=== PATIENT | female | born 1975 | race Caucasian/White ===

== ENCOUNTER 2017-10-29 15:44 | Emergency (ER) | payer BC ==
[~2017-10-29] VITALS: Ht 167.6 cm; Wt 60.1 kg
[2017-10-29 15:49] VITALS: TEMP 36.9; Ht 167.6 cm; Wt 60.1 kg
[2017-10-29] MEDS ORDERED: BENZONATATE 100MG CAP PO STA (17:15)
[2017-10-29] MEDS ORDERED: ALBUTEROL HFA 8 GM INHALER INH STA (17:15)
--- NOTE | 2017-10-29 18:05 | DIAGNOSTIC IMAGING REPORT ---
CHEST 2 VIEWS ROUTINE CLINICAL HISTORY: 42 years-old Female presenting with cough for 2 weeks. TECHNIQUE: PA and lateral views of the chest were obtained. COMPARISON: None. FINDINGS: Cardiomediastinal silhouette normal. Lungs and pleural spaces clear. Osseous structures normal. Upper abdomen normal. IMPRESSION: 1. No acute cardiopulmonary disease. Electronically signed by: Russel Dave M.D. 10/29/2017 6:04 PM Dictated Date/Time: 10/29/2017 6:03 PM
[2017-10-29 18:13] LABS: INFLUENZA B ANTIGEN Neg for Influ B (NEG)
--- NOTE | 2017-10-29 18:20 | EMERGENCY ROOM VISIT NOTE ---
ED Visit Note First contact with patient: 17:01 CHIEF COMPLAINT: Cough, rhinorrhea, subjective fever HISTORY OF PRESENT ILLNESS: This 42-year-old female patient presents to the emergency department ambulatory, complaining of URI symptoms x 2 weeks. The patient states they have been experiencing congestion, runny nose, sore throat, productive cough, chills, headache, bilateral otalgia, and subjective fever. She states the sore throat has improved, but the coughing is lingering. They deny any other symptoms including swollen lymph nodes, nausea, or vomiting. The patient was seen initially by urgent care 1 week ago, and states she was not given any antibiotics. She was then seen by her primary care provider on Wednesday or Wednesday of this week, where she was given a Z-Wesley. She states she did have a negative strep test performed at that time. She finished the Z-Wesley today, and states she continues to experience the discomfort. She is not getting any better. The patient describes the drainage from the nose as yellow. There bilateral sinus pressure with pain. The patient has taken various OTC medications including Mucinex, nasal sprays, and cough medicine without relief. The patient does not work around children, nor does she have small children who attend daycare or school. Denies a rash. She denies any chest pain, dyspnea, diarrhea, constipation, abdominal pain. She did not get a flu shot this year. REVIEW OF SYSTEMS: A 10 system review of systems was performed with positives and pertinent negatives listed in the history of present illness. All other systems were reviewed and are negative. ALLERGIES: None MEDICATIONS: Spironolactone, vitamins PMH: Acne SOCIAL HISTORY: The patient lives locally with family. She denies drug, alcohol , tobacco use. PHYSICAL EXAM: VITALS: Vitals are noted on the nurse's note and reviewed by myself. Vital signs stable. GENERAL: This is a 42-year-old white female, in no acute distress, nondiaphoretic, well-developed well-nourished. SKIN: The skin was without rashes, erythema, edema, or bruising. There is no tenting of the skin. Capillary reflex less than 2 seconds. HEAD: Normocephalic atraumatic. EARS: External auditory canals clear, bilateral tympanic membranes pearly eddy without erythema or effusion bilaterally. EYES: Pupils equal round and reactive to light and accommodation. Conjunctivae without injection, sclerae without icterus. Extraocular movements intact. NOSE: Patent, turbinates without inflammation or erythema. Clear, runny rhinorrhea noted. No sinus tenderness. MOUTH: Mucous membranes moist. Tonsils are not enlarged. Pharynx without erythema or exudate. Uvula midline. Airway patent. Tongue does not deviate. NECK: Supple without nuchal rigidity. No lymphadenopathy. No thyromegaly. Cervical spine is nontender. No JVD. HEART: Regular rate and rhythm without murmurs gallops or rubs. LUNGS: Clear to auscultation bilaterally without wheezes, rales or rhonchi. No dullness to percussion. No retractions or accessory muscle use. MUSCULOSKELETAL: No muscle atrophy, erythema, or edema noted. Full range of motion without joint tenderness in all extremities. No tenderness to palpation. Normal gait. Strength 5/5 throughout. NEURO: Patient was alert and oriented to person place and time. Normal sensation to light and sharp touch. No focal neurological deficits. RADIOLOGY: CHEST 2 VIEWS ROUTINE CLINICAL HISTORY: 42 years-old Female presenting with cough for 2 weeks. TECHNIQUE: PA and lateral views of the chest were obtained. COMPARISON: None. FINDINGS: Cardiomediastinal silhouette normal. Lungs and pleural spaces clear. Osseous structures normal. Upper abdomen normal. IMPRESSION: 1. No acute cardiopulmonary disease. Electronically signed by: Russel Dave M.D. 10/29/2017 6:04 PM Dictated Date/Time: 10/29/2017 6:03 PM EMERGENCY DEPARTMENT COURSE: The patient was seen and evaluated as above. Influenza test performed and was negative. Chest x-ray performed and reviewed by myself and radiologist as above. The patient was given an albuterol inhaler and benzonatate. She did note significant improvement in her coughing and symptoms. She continues to experience a headache. I did offer Tylenol or Motrin, the patient declines at this time. Based on her symptoms and no objective fever, I suspect a viral etiology of illness. The patient was recently on antibiotics without any improvement. She does appear to be improving, however slowly. I discussed proper management of symptoms with OTC medications with the patient at bedside. I had a long discussion with her regarding inappropriate use of antibiotics. The patient was agreeable to the plan, and she was encouraged to follow-up closely outpatient with her PCP if no improvement in symptoms by next week. Discharge instructions reviewed, and the patient was discharged home in good condition. I attest that I have personally reviewed the patient's current medication list. Patient was found to have normal blood pressure on screening and does not require follow-up. DIFFERENTIAL DIAGNOSIS: Influenza, pneumonia, bronchitis, tracheobronchitis, acute Sinusitis, URI, Viral pharyngitis, Strep Pharyngitis, Peritonsillar abscess, tonsilitis, malignancy, and others DIAGNOSIS: Tracheobronchitis Current/Historical Medications Scheduled Lactobacillus Acidophilus (Lactinex), 1 TAB PO DAILY Multiple Vitamins W/ Minerals (Adult Gummy), 2 TABS PO DAILY Spironolactone (Aldactone), 25 MG PO DAILY Vitamin E (Vitamin E 400 Iu), 400 INTER.UNIT PO DAILY Scheduled PRN Benzonatate (Tessalon Perles), 200 MG PO TID PRN for Cough Vital Signs Date Time Temp Pulse Resp B/P (MAP) Pulse Ox O2 Delivery O2 Flow Rate FiO2 10/29/17 19:02 91 18 118/77 98 10/29/17 17:34 79 18 125/75 97 Room Air 10/29/17 15:49 36.9 87 18 107/73 95 Room Air Laboratory Results Test 10/29/17 17:30 Influenza Type A Antigen Neg for Influ A (NEG) Influenza Type B Antigen Neg for Influ B (NEG) Medications Administered Medications (Trade) Dose Ordered Sig/Porfirio Route Start Time Stop Time Status Last Admin Dose Admin Albuterol (Ventolin Hfa Inhaler) 2 puffs NOW STAT INH 10/29/17 17:15 10/29/17 17:21 DC 10/29/17 17:35 2 PUFFS Benzonatate (Tessalon Perles Cap) 200 mg NOW STAT PO 10/29/17 17:15 10/29/17 17:21 DC 10/29/17 17:35 200 MG Departure Information Impression Primary Impression: Tracheobronchitis Dispostion Home / Self-Care Condition GOOD Prescriptions Benzonatate (Tessalon Perles) 200 Mg Cap 200 MG PO TID Y for Cough, #30 CAP Prov: Seema Lyons PA-C 10/29/17 Referrals Amanda Cuba PA-C (PCP) Patient Instructions ED Upper Resp Infec No Abx Tx, [facility] Additional Instructions You were seen and evaluated in the emergency department today for an upper respiratory infection. I do feel that based on your symptoms, and the duration of illness, this is likely viral in nature. As discussed, antibiotics will not treat viral illness. You have been provided with an albuterol inhaler to use for wheezing or difficulty breathing. Use this inhaler 1-2 puffs every 4-6 hours as needed. If you find that your symptoms are not improving with the use of the inhaler, or if you find that you need to use the inhaler longer than 1 week, return to the ED or follow-up with your PCP. You have been given benzonatate (Tessalon Pearles) to be used for coughing. These should be taken 1 capsule up to 3 times per day as needed for coughing. Do not take this medication more than prescribed. You may use this medication in addition to OTC cough medications. For your sore throat, you may use a 1:1 mixture of liquid Benadryl and liquid Maalox. Gargle and spit this mixture. It will help to soothe the throat and provide some relief. Drink warm tea with honey and lemon, as this will also help to soothe the throat. Gargle with salt water frequently. As discussed, you should take OTC Mucinex and/or Sudafed for your symptoms. Please do not exceed the recommended daily dosages. Ibuprofen(Motrin, Advil) may be used for fever or pain. Use 600mg every six hours as needed. Take with food. Avoid using more than 2400mg in a 24 hour period. Do not use 2400mg per day for more than three consecutive days without physician direction. Prolonged inappropriate use can lead to stomach upset or ulcers. Acetaminophen(Tylenol) may be used for fever or pain. Use 1000mg every six hours as needed. Avoid using more than 3000mg in a 24 hour period. For congestion, you may use Flonase OTC. You may want to consider zinc, echinacea, and vitamin C to help boost your immunity. Please get plenty of rest and drink plenty of fluids. Please return or follow-up with your PCP in 1 week if you are not experiencing any improvement in your symptoms. Return to the emergency department for coughing up blood, difficulty breathing, chest pain, worsening symptoms, or for other concerns.
[2017-10-29] MEDS ORDERED: LCTX PO (18:43)
[2017-10-29] MEDS ORDERED: VITA400C3 PO (18:43)
[2017-10-29] MEDS ORDERED: MULT1CHW4 PO (18:43)
[2017-10-29] MEDS ORDERED: SPIR25TA PO (18:43)
[2017-10-29] MEDS ORDERED: BENZ1CAP90 PO (18:52)
[2017-10-29 19:02] VITALS: BP 118/77; PULSE 91; O2SAT 98
== END 2017-10-29 19:02 | disposition home or self-care (01) ==
LOC: C.EDB 15:46 → C.EDC 19:02
DX: J40 Bronchitis, not specified as acute or chronic (principal); Z79.899 Other long term (current) drug therapy